=== PATIENT | female | born 1980 | race Two or more races ===

== ENCOUNTER 2021-02-20 13:40 | Emergency (ER) | payer MEDICAID, OTHER ==
[~2021-02-20] VITALS: Ht 175.3 cm; Wt 81.6 kg
[2021-02-20 14:28] VITALS: BP 118/80
[2021-02-20] MEDS ORDERED: IBUPROFEN 800 MG TAB PO ONE (14:30)
== END 2021-02-20 15:24 | disposition home or self-care (01) ==
LOC: EDSEX 13:40 → ER 13:40
DX: S16.1XXA Strain of muscle, fascia and tendon at neck level, initial encounter (principal); S39.012A Strain of muscle, fascia and tendon of lower back, initial encounter; V43.62XA Car passenger injured in collision with other type car in traffic accident, initial encounter; Y93.89 Activity, other specified; Y99.8 Other external cause status; Y92.410 Unspecified street and highway as the place of occurrence of the external cause
CPT/HCPCS: 72040